=== PATIENT | female | born 1985 | race Hispanic/Latino ===

== ENCOUNTER 2020-06-23 04:02 | Inpatient (IN) | payer OTHER ==
[~2020-06-23] VITALS: Ht 162.6 cm; Wt 89.0 kg
--- NOTE | 2020-06-23 04:03 | NUR ---
PT WAS TAKEN TO THE TREATMENT AREA UPON ARRIVAL. PT IS TACHYPNEIC AND INCREASED WORK OF BREATHING NOTED.
[2020-06-23] MEDS ORDERED: OTC COUGH MED (04:37)
[2020-06-23 04:41] LABS: HEMATOCRIT 42.3 % (37.0-47.0); IMMATURE GRANULOCYTES 0.4 % (0.0-5.0); MEAN CELL VOLUME 85.8 fL CALC (80.0-100.0); MEAN CORPUSCULAR HGB 28.4 pG CALC (26.0-32.0); MEAN CORPUSCULAR HGB CONC 33.1 g/dL CAL (32.0-36.0); NEUT# 3.9 thou/uL (2.00-7.15); RED BLOOD COUNT 4.93 mill/uL (4.20-5.60); RED CELL DISTRI WIDTH 12.7 % (11.5-15.5)
[2020-06-23 05:01] LABS: ALBUMIN 4.3 g/dL (3.2-5.0); ALKALINE PHOSPHATASE 80 u/l (38-126); ANION GAP 14 (6-22 (CALC)); BILIRUBIN, TOTAL 0.9 mg/dL (0.0-1.4); BUN 15 mg/dL (7-17); BUN/CREATININE RATIO 18 (12-20 (CALC)); CARBON DIOXIDE 26 mmol/l (22-30); CHLORIDE 105 mmol/l (95-108); CREATININE 0.8 mg/dL (0.5-1.0); GFR > 60 ML/MIN (>=60 (CALC)); GFR FOR AFR.AMER. > 60 ML/MIN (>=60 (CALC)); POTASSIUM 3.3 mmol/l (3.5-5.1); SGOT/AST 45 u/l (14-36); SODIUM 141 mmol/l (137-146); TOTAL PROTEIN 8.6 g/dL (6.3-8.2)
[2020-06-23 05:30] LABS: MYOGLOBIN 22 ng/mL (0 - 62)
--- NOTE | 2020-06-23 06:16 | NUR ---
PT HAS RETURNED FROM CT SCAN AND HAS NON PRODUCTIVE COUGH
--- NOTE | 2020-06-23 07:30 | NUR ---
pt resting in bed, 3L of oxygen in place
--- NOTE | 2020-06-23 07:56 | NUR ---
gave report to ms, telemetry applied, will transfer pt to ms via stretcher with oxygen
[2020-06-23 08:27] LABS: URINE BILIRUBIN - DIPSTICK NEGATIVE (NEGATIVE); URINE BLOOD DIPSTICK TRACE-LYSED (NEGATIVE); URINE COLOR YELLOW; URINE GLUCOSE - DIPSTICK NEGATIVE (NEGATIVE); URINE KETONE NEGATIVE (NEGATIVE); URINE LEUK ESTERASE NEGATIVE (NEGATIVE); URINE PH 6.5 (4.5-8.0); URINE PROTEIN - DIPSTICK TRACE mg/dL (NEG-TRACE); URINE SPECIFIC GRAVITY <=1.005
[2020-06-23 08:28] LABS: URINE NITRITE - DIPSTICK NEGATIVE (Negative)
--- NOTE | 2020-06-23 08:40 | NUR ---
PT ARRIVED TO MED-SURG FLOOR VIA WC IN STABLE CONDITION ACCOMPANIED BY ED NURSES, TAY;PT AMBULATED TO BED WITH STEADY GAIT;VS AND ASSESSMENT WERE COMPLETED;ALLERGY AND FALL RISK ARM BANDS WERE PLACED ON PT;PT INVENTORY SHEET WAS COMPLETED;PT WAS ORIENTED TO TV,BED, AND CALL LIGHT SYSTEM;HEART SOUNDS ARE REGULAR IN RATE AND RHYTHM;LUNG SOUNDS ARE DIMINISHED IN ALL LOBES;RESPIRATIONS ARE EVEN AND UNLABORED ON O2@3L VIA NC;PT IS REPORTING EXERTIONAL SOB AND A NON-PRODUCTIVE COUGH WAS NOTED;TELE IS IN PLACE;#18G IV IN RAC IS SL, PATENT AND FREE OF COMPLICATIONS AT THIS TIME;SAFETY PRECAUTIONS IN PLACE;PT IS CURRENTLY ON AIR/CONTACT PRECAUTIONS IN NEG PRESSURE ROOM DUE TO COVID-19 DX;CALL LIGHT WITHIN REACH;BED IN LOWEST POSITION;PT ASKED TO CALL WITH ANY NEEDS OR CONCERNS;WILL CONTINUE TO MONITOR.
[2020-06-23 09:33] LABS: C-REACTIVE PROTEIN 6.6 mg/dL (0-0.9)
[2020-06-23 11:47] VITALS: BP 116/64
--- NOTE | 2020-06-23 12:00 | NUR ---
PT WAS FOUND SITTING UP IN BEDSIDE CHAIR EATING LUNCH;PT EXPRESSED NO NEEDS OR CONCERNS AT THIS TIME;TELE IS IN PLACE;O2@3L VIA NC IS IN PLACE;SAFETY PRECAUTIONS IN PLACE;CALL LIGHT WITHIN REACH;BED IN LOWEST POSITION;WILL CONTINUE TO MONITOR.
--- NOTE | 2020-06-23 16:00 | NUR ---
PT WAS FOUND RESTING IN BED;PT HAS NO REPORTS OF PAIN AT THIS TIME;TELE IS IN PLACE;O2@3L VIA NC IS IN PLACE;#18G IV IN RAC IS RUNNING NS@75ML/HR;IV SITE APPEARS FREE OF COMPLICATIONS AT THIS TIME;SAFETY PRECAUTIONS IN PLACE;CALL LIGHT WITHIN REACH;BED IN LOWEST POSITION;WILL CONTINUE TO MONITOR.
[2020-06-23 16:29] VITALS: BP 122/54
[2020-06-23 19:00] VITALS: BP 99/48
--- NOTE | 2020-06-23 20:30 | NUR ---
PATIENT RESTING IN BED WITH O2 VIA NASAL CANNULA IN PLACE AT 3LPM. LAST O2 SAT WAS 94%. PATIENT DOES BECOME SOB WITH EXHERSION. O2 EXTENSION WAS APPLIED SO PATIENT IS ABLE TO LEAVE THE O2 IN PLACE WHEN GOING INTO THE BR. OCC NON-PRODUCTIVE COUGH. USING ROBITUSSIN PRN. IVF NS PATENT AND INFUSING VIA RAC SITE AT 75CC/HR. SITE IS HEALTHY AT THIS TIME. TELE MONITOR IN PLACE-LAST READING WAS SR-84. LUNGS ARE CLEAR. DENIES ANY DIFF WITH URINATION. LAST BM WAS TODAY. PATIENT ON ISOLATION FOR COVID. CALL LIGHT IN REACH. WILL CONT TO MONITOR.
--- NOTE | 2020-06-23 23:40 | NUR ---
PATIENT CALLED AND C/O SOB. PATIENT UP TO THE BR TO VOID AND BECAME SOB-O2 VIA NASAL CANNULA IN PLACE AT 3LPM. PATIENT USED VENTOLIN INHALER WITH SOME RELIEF. HR ALSO INCREASED BUT SLOWLY RESOLVED BACK DOWN TO HIGH 90'S. TELE MONITOR IN PLACE. ROBITUSSIN GIVEN FOR NON-PRODUCTIVE COUGH. BACK TO BED WITH HOB ELEVATED. ENCOURAGED PRONING IF POSSIBLE AND ALSO INSTRUCTED ON USE OF IS Q1H WHILE AWAKE IN REPS OF 10. SAFETY PRECAUTIONS REINFORCED. CALL LIGHT IN REACH. WILL CONT TO MONITOR.
[2020-06-24] VITALS: BP 137/72
--- NOTE | 2020-06-24 03:57 | NUR ---
PATIENT RESTING IN BED WITH O2 VIA NASAL CANNULA IN PLACE AND O2 SAT OF 93%. PATIENT CONT TO HAVE NON-PRODUCTIVE COUGH AND MEDICATED WITH ROBITUSSIN ORDERED FOR COUGH. TELE MONITOR IN PLACE. IVF PATENT AND INFUSING VIA RAC SITE AT 75CC/HR. CALL LIGHT IN REACH. WILL CONT TO MONITOR.
[2020-06-24 04:00] VITALS: BP 122/72
[2020-06-24 05:36] LABS: HEMATOCRIT 38.2 % (37.0-47.0); HEMOGLOBIN 12.4 g/dl (12.0-16.0); IMMATURE GRANULOCYTES 0.4 % (0.0-5.0); MEAN CELL VOLUME 86.8 fL CALC (80.0-100.0); MEAN CORPUSCULAR HGB 28.2 pG CALC (26.0-32.0); MEAN CORPUSCULAR HGB CONC 32.5 g/dL CAL (32.0-36.0); NEUT# 3.77 thou/uL (2.00-7.15); RED BLOOD COUNT 4.4 mill/uL (4.20-5.60); RED CELL DISTRI WIDTH 12.7 % (11.5-15.5)
[2020-06-24 05:58] LABS: ALBUMIN 3.6 g/dL (3.2-5.0); ALKALINE PHOSPHATASE 69 u/l (38-126); ANION GAP 14 (6-22 (CALC)); BILIRUBIN, TOTAL 0.7 mg/dL (0.0-1.4); BUN 12 mg/dL (7-17); BUN/CREATININE RATIO 23 (12-20 (CALC)); CARBON DIOXIDE 22 mmol/l (22-30); CHLORIDE 110 mmol/l (95-108); CREATININE 0.5 mg/dL (0.5-1.0); GFR > 60 ML/MIN (>=60 (CALC)); GFR FOR AFR.AMER. > 60 ML/MIN (>=60 (CALC)); POTASSIUM 3.8 mmol/l (3.5-5.1); SGOT/AST 43 u/l (14-36); SODIUM 142 mmol/l (137-146); TOTAL PROTEIN 6.9 g/dL (6.3-8.2)
--- NOTE | 2020-06-24 07:00 | NUR ---
PT REPORT RECEIVED FROM NIGHT NURSESATURNINO.
[2020-06-24 08:30] VITALS: BP 119/59
[2020-06-24 10:37] VITALS: BP 114/60
--- NOTE | 2020-06-24 10:53 | NUR ---
AND POLY MACDONALD AT BEDSIDE DISCUSSING POC WITH PT
--- NOTE | 2020-06-24 12:00 | NUR ---
PT WAS FOUND RESTING IN BEDSIDE CHAIR;PT IS A&OX3;VS AND ASSESSMENT WERE COMPLETED;PT HAS NO REPORTS OF PAIN AT THIS TIME;HEART SOUNDS ARE REGULAR IN RATE AND RHYTHM;TELE IS IN PLACE;LUNG SOUNDS ARE DIMINISHED IN ALL LOBES;RESPIRATIONS ARE EVEN AND UNLABORED ON O2@3L VIA NC;PT IS REPORTING EXERTIONAL SOB AND A NON-PRODUCTIVE COUGH WAS NOTED;#18G IV IN RAC IS RUNNING NS @75ML/HR;IV SITE APPEARS FREE OF COMPLICATIONS AT THIS TIME;SAFETY PRECAUTIONS IN PLACE;CALL LIGHT WITHIN REACH;BED IN LOWEST POSITION;PT ASKED TO CALL WITH ANY NEEDS OR CONCERNS;WILL CONTINUE TO MONITOR.
--- NOTE | 2020-06-24 12:00 | NUR ---
PT WAS FOUND RESTING IN BEDSIDE CHAIR;TELE IS IN PLACE;O2@3L VIA NC IS IN PLACE;SAFETY PRECAUTIONS IN PLACE;CALL LIGHT WITHIN REACH;BED IN LOWEST POSITION;ENCOURAGED PT TO CALL WITH ANY NEEDS OR CONCERNS;WILL CONTINUE TO MONITOR
[2020-06-24 14:30] VITALS: BP 141/81
--- NOTE | 2020-06-24 16:00 | NUR ---
PT WAS FOUND RESTING IN BED;PT HAS NO REPORTS OF PAIN AT THIS TIME;O2@3L VIA NC IS IN PLACE;#18G IV IN RAC IS RUNNING NS@75 ML/HR;REMDESIVIR IS INFUSING AT THIS TIME;IV SITE APPEARS FREE OF COMPLICATIONS;SAFETY PRECAUTIONS IN PLACE;CALL LIGHT WITHIN REACH;BED IN LOWEST POSITION;WILL CONTINUE TO MONITOR.
[2020-06-24 19:00] VITALS: BP 136/76
--- NOTE | 2020-06-24 19:00 | NUR ---
REPORT RECEIVED FROM Ayaka SOTO RN, CARE OF PT ASSUMED AT THIS TIME.
--- NOTE | 2020-06-24 20:00 | NUR ---
PT SITTING UP IN CHAIR WATCHING TV. PHYSICAL ASSESMENT COMPLETE. RESPIRATIONS UNLABORED AT REST, REPORTS SOB WITH EXERTION. NON-PRODUCTIVE COUGH. LUNGS CLEAR AND DIMINSIHED. 02 A 3L/MIN VIA NC HUMIDIFIED. SPO2 94%. TELEMETRY #8612, NSR 80'S PER ORE DRESSING ENGINEER. PT REPORTS USING I.S. AND IMPROVING, HOWEVER HAS NOT BEEN ABLE TO REACH 500ML CAPACITY. R-AC #18G IV PATENT AND INFUSING NS@75ML/H. PT DENIES NEEDS WHEN ASKED, PT ABLE TO MAKE NEEDS KNOWN. CALL PENA WITHIN REACH, AGREES TO CALL PRN.
[2020-06-25] VITALS (7 sets, daily range): BP systolic 110–160; BP diastolic 70–95
--- NOTE | 2020-06-25 00:30 | NUR ---
PT APPEARS TO BE SLEEPING COMFORTABLY, LAYING IN BED WITH EYES CLOSED, RESPIRATIONS REGUALR AND UNLABORED, NO APPARENT DISTRESS. CALL PENA REMAINS WITHIN REACH.
--- NOTE | 2020-06-25 05:03 | NUR ---
Aleida DIAZ HORIZONTAL DRILL OPERATOR AT BEDSIDE TO COLLECT AM LABS.
[2020-06-25 05:40] LABS: HEMATOCRIT 35.8 % (37.0-47.0); HEMOGLOBIN 11.7 g/dl (12.0-16.0); IMMATURE GRANULOCYTES 0.7 % (0.0-5.0); MEAN CELL VOLUME 86.7 fL CALC (80.0-100.0); MEAN CORPUSCULAR HGB 28.3 pG CALC (26.0-32.0); MEAN CORPUSCULAR HGB CONC 32.7 g/dL CAL (32.0-36.0); NEUT# 2.54 thou/uL (2.00-7.15); RED BLOOD COUNT 4.13 mill/uL (4.20-5.60); RED CELL DISTRI WIDTH 12.5 % (11.5-15.5)
[2020-06-25 06:06] LABS: ALBUMIN 3.2 g/dL (3.2-5.0); ALKALINE PHOSPHATASE 58 u/l (38-126); ANION GAP 10 (6-22 (CALC)); BUN 14 mg/dL (7-17); BUN/CREATININE RATIO 29 (12-20 (CALC)); C-REACTIVE PROTEIN 4.9 mg/dL (0-0.9); CARBON DIOXIDE 25 mmol/l (22-30); CHLORIDE 108 mmol/l (95-108); CREATININE 0.5 mg/dL (0.5-1.0); GFR > 60 ML/MIN (>=60 (CALC)); GFR FOR AFR.AMER. > 60 ML/MIN (>=60 (CALC)); POTASSIUM 3.3 mmol/l (3.5-5.1); SGOT/AST 31 u/l (14-36); SODIUM 140 mmol/l (137-146); TOTAL PROTEIN 6.2 g/dL (6.3-8.2)
[2020-06-25 06:16] LABS: BILIRUBIN, TOTAL 0.4 mg/dL (0.0-1.4)
--- NOTE | 2020-06-25 07:00 | NUR ---
RECIEVED REPORT FROM JAKE FAY
--- NOTE | 2020-06-25 07:30 | NUR ---
PT RESTING IN SEMI FOWLERS POSITION. PT IS A/O X3. ASSESSMENT AND VITALS COMPLETED. BP 136/80, HR 84, O2 97% ON 2L NC. 2L NC AT BEDSIDE PRN, O2 93-94% ON ROOM AIR. REPSIRATIONS ARE EVEN AND UNLABORED. EXERTIONAL SOB NOTED. PT INSTRUCTED TO REAPPLY O2 WHEN NEEDED, PT VERBALIZED UNDERSTANDING. LUNG SOUNDS DIMINISHED. HEART RHYTHM NORMAL WITH TELE IN PLACE. BOWEL SOUNDS ARE ACTIVE.#18G IN RAC INFUSING WITH IVF PER CASSANDRA, SITE REMAINS HEALTHY AND PATENT. SKIN INTACT. PT DENIES OF ANY PAINS OR DISCOMFORTS AT THIS TIME.PT EDUCATED ON NEED FOR GETTING UP TO CHAIR AND PRONING. PT VERBALIZED UNDERSTANDING.I.S AT BEDSIDE, PT DEMISTRATES, 500 REACHED.PT EDUCATED ON USAGE 10X PER HOUR. ALL SAFETY PRECAUTIONS ARE IN PLACE WITH CALL LIGHT IN REACH. AIR/CONTACT PRECAUTIONS ARE IN PLACE. WILL CONTINUE TO MONITOR.
--- NOTE | 2020-06-25 09:01 | NUR ---
PT SITTING UP ON SIDE OF BED. REPSIRATIONS REMAINS EVEN AND UNLABORED ON ROOM AIR. O2 92%. PT INSTRUCTED TO REAPPLY O2 IF NEEDED. PT VERBLAIZED UNDERSTANDING. 2L NC AT BEDSIDE PRN. NONPRODUCTIVE COUGH NOTED. ROBITUSSIN ADMINISTERED. PT TOLERATED WELL.
--- NOTE | 2020-06-25 09:18 | NUR ---
DIALLO,ANRP AT BEDSIDE
--- NOTE | 2020-06-25 11:38 | NUR ---
PTIN HIGH FOWLERS POSITION. RESPIRATIONS ARE EVEN AND UNLABORED ON ROOM AIR. #18G RAC HEALTHY AND PATENT, IVF DC PER ORDER. TELE MONITORING IN PLACE. PT COMPLAINS OF COUGH, INFORMED THAT ROBITUSSIN WAS YET DUE. PT DENIES OF ANY OTHER NEEDS AT THIS TIME. ALL SAFTEY AND ISOLATION PRECAUTIONS ARE IN PLACE. WILL CONTINUE TO MONITOR.
--- NOTE | 2020-06-25 12:21 | NUR ---
DR INIGUEZ AT BEDSIDE
--- NOTE | 2020-06-25 14:09 | NUR ---
PT RESTING IN SEMI FOWLERS POSITION.RESPIRATIONS ARE EVEN AND UNLABORED ON ROOM AIR. O2 93%. ROBITUSSIN ADMINISTERED AT THIS TIME PER PT REQUEST. PT DENES OF ANY OTHER NEEDS AT THIS TIME. IV ANTIBIOTIS INFUSING WITH EASE, WILL CONTINUE TO MONITOR.
--- NOTE | 2020-06-25 16:04 | NUR ---
PT SITTING UP IN CHAIR. RESPIRATIONS ARE EVEN AND UNLABORED WITH NO DISTRESS NOTED ON ROOM AIR. #18G IN RAC INFUSING WITH IVF ANTIBIOTICS, SITE REMAINS HEALTHY AND PATENT.TELE MONITORING IN PLACE. PT DENIES OF ANY NEEDS OR DISCOMFORTS AT THIS TIME. ALL SAFETY PRECAUTIONS ARE IN PLACE WITH CALL LIGHT IN REACH. WILL CONTINUE TO MONITOR.
--- NOTE | 2020-06-25 19:00 | NUR ---
REPORT RECEIVED MARLINE MEIER LPN, CARE OF PT ASSUMED AT THIS TIME.
--- NOTE | 2020-06-25 20:45 | NUR ---
PT SITTING UP IN CHAIR, WATCHING TV. PHYSICAL ASSESMENT COMPLETE. RESPIRATIONS REGULAR AND UNLABORED, PERSISTENT DRY NON-PRODUCTIVE COUGH APPRECIATED. LUNGS CLEAR AND DIMINISHED. PT REPORTS DIFFICULTY WITH DEEP INSPIRATION, COUGHING NOTED TO GET WORSE WITH DEEP BREATH. PULMONARY HYGIENE REVIEWED AND ENCOURAGED, PRONING WHILE IN BED ENCOURAGED. INCENTIVE SPIROMETER ON BEDSIDE TABLE, PT REPORTS SHE IS USING IT. SPO2 93% ON ROOM AIR. SCHEDULED MEDICATION AND PRN ROBITUSSIN ADMINISTERED, SEE E-MAR. PLAN OF CARE REVIEWED, PT VERBALIZES UNDERSTANDING. PT'S IV WRAPPED WITH SHOWER SHIELD PER HER REQUEST AND TELEMETRY REMOVED. ALUMINUM SIDING INSTALLER MADE AWARE PT WOULD BE IN SHOWER AND OFF MONITOR. PT AGREES TO PULL RED CORD IN SHOWER IF SHE NEEDS ASSISTANCE.
--- NOTE | 2020-06-26 00:30 | NUR ---
PT APPEARS TO BE SLEEPING COMFORTABLY, LAYING IN BED WITH EYES CLOSED, RESPIRATIONS REGUALR AND UNLABORED, NO APPARENT DISTRESS. CALL PENA REMAINS WITHIN REACH.
[2020-06-26 04:00] VITALS: BP 140/86
--- NOTE | 2020-06-26 05:05 | NUR ---
Aleida DIAZ MINE UTILITY OPERATOR AT BEDSIDE TO COLLECT AM LABS.
[2020-06-26 05:50] LABS: HEMATOCRIT 37.7 % (37.0-47.0); HEMOGLOBIN 12.5 g/dl (12.0-16.0); IMMATURE GRANULOCYTES 4.2 % (0.0-5.0); MEAN CELL VOLUME 84.9 fL CALC (80.0-100.0); MEAN CORPUSCULAR HGB 28.2 pG CALC (26.0-32.0); MEAN CORPUSCULAR HGB CONC 33.2 g/dL CAL (32.0-36.0); NEUT# 2.62 thou/uL (2.00-7.15); RED BLOOD COUNT 4.44 mill/uL (4.20-5.60); RED CELL DISTRI WIDTH 12.3 % (11.5-15.5)
[2020-06-26 05:59] LABS: ALBUMIN 3.4 g/dL (3.2-5.0); ALKALINE PHOSPHATASE 60 u/l (38-126); ANION GAP 12 (6-22 (CALC)); BILIRUBIN, TOTAL 0.4 mg/dL (0.0-1.4); BUN 14 mg/dL (7-17); BUN/CREATININE RATIO 28 (12-20 (CALC)); CARBON DIOXIDE 24 mmol/l (22-30); CHLORIDE 107 mmol/l (95-108); CREATININE 0.5 mg/dL (0.5-1.0); GFR > 60 ML/MIN (>=60 (CALC)); GFR FOR AFR.AMER. > 60 ML/MIN (>=60 (CALC)); POTASSIUM 3.6 mmol/l (3.5-5.1); SGOT/AST 26 u/l (14-36); SODIUM 140 mmol/l (137-146); TOTAL PROTEIN 6.6 g/dL (6.3-8.2)
--- NOTE | 2020-06-26 07:00 | NUR ---
RECIEVED REPORT FROM JAKE FAY
[2020-06-26 07:44] VITALS: BP 135/63
--- NOTE | 2020-06-26 07:50 | NUR ---
PT RESTING IN SEMI FOWLERS POSITION. PT IS A/O X3. ASSESSMENT AND VITALS COMPLETED. BP 135/63, HR 92, O2 95% ON ROOM AIR. REPSPIRATIONS ARE EVEN AND UNLABORED WITH NO SIGNS OF DISTRESS NOTED. LUNG SOUNDS ARE DIMINISHED. NONPRODUCTIVE COUGH NOTED. HEART RHYTHM NORMAL WITH TELE IN PLACE. BOWEL SOUNDS AE ACTIVE. PT REPORTS LOOSE BM. #18G IN RAC FLUSHED, SITE REMAINS HEALTHY AND PATENT. SKIN INTACT. PT COMPLAINS OF 3/10 BACK PAIN, PT TO BE MEDICATED PER EMAR. I.S AT BEDSIDE. PT INSTRUCTED ON USAGE OF 10 TIMES PER HOUR. PT VERBALIZED UNDERSTANDING. PT DENIES OF ANY OTHER NEEDS AT THIS TIME. ALL SAFETY PRECAUTIONS ARE IN PLACE WITH CALL LIGHT IN REACH. ALL SAFETY PRCAUTIONS ARE IN PLACE WITH CALL LIGHT IN REACH. AIR/CONTACT PRECAUTIONS ARE IN PLACE. WILL CONTINUE TO MONITOR.
[2020-06-26 10:30] VITALS: BP 115/64
--- NOTE | 2020-06-26 12:27 | NUR ---
PT SITTING UP IN RECYLINER ON PHONE. RESPIRATIONS ARE EVEN AND UNLABORED WITH NO DISTRESS NOTED. #18G IN RAC SL. TELE MONITORING IN PLACE. PT DENIES OF ANY PAINS OR DISCOMFORTS AT THIS TIME.ALL SAFETY PRECAUTIONS ARE IN PLACE WITH CALL LIGHT IN REACH. WILL CONTINUE.
[2020-06-26 15:40] VITALS: BP 144/77
--- NOTE | 2020-06-26 16:18 | NUR ---
PT RESTING IN SEMI FOWLERS POSITION. RESPIRATIONS ARE EVEN AND UNLABORED ON ROOM AIR. #18G IN RAC, PT REFUSES CHANGE DUE TO DC TOMORROW. SITE REMAINS HEALTHY AND PATENT WITH GOOD BLOOD RETURN. TELE MONITORING IN PLACE. PT DENIES OF ANYU PAINS OR NEEDS AT THIS TIME. ALL SAFETY PRECAUTIONS ARE IN PLACE WITH CALL LIGHT IN REACH. WILL CONTINUE TO MONITOR.
[2020-06-26 19:30] VITALS: BP 108/71
--- NOTE | 2020-06-26 21:00 | NUR ---
PATIENT SITTING UP IN BED WATCHING TV-NO O2 AT THIS TIME. LAST O2 SAT WAS 92F% ON ROOM AI. ALERT AND ORIENTEDX3. PATIENT CONT TO HAVE NON-PRODUCTIVE COUGH. MEDICATED WITH ROBITUSSIN ORDERED FOR COUGH. TELE MONITOR IN PLACE-LAST READING WAS SR-88. SALINE LOCK TO RAC INTACT AND REMAINS HEALTHY AT THIS TIME. PATIENT DENIES ANY DIFFICULTY WITH URINATION. LUNGS ARE DIMINISHED BUT CLEAR. ENCOUARGED USE OF IS Q1H WHILE AWAKE IN REPS OF 10. VERBALIZES U NDERSTANDING. ENCOURAGED PRONING BUT PATIENT STATES THAT SHE IS NOT ABLE TO TOLERATE THAT. REMAINS ON ISOLATION FOR COVID. SAFETY PRECAUTIONS REINFORCED. CALL LIGHT IN REACH. WILL CONT TO MONITOR.
[2020-06-27] VITALS: BP 103/56
--- NOTE | 2020-06-27 00:15 | NUR ---
PATIENT RESTING IN BED WITH EYES CLOSED. RESPS ARE EVEN AND UNLABORED-O2 SAT ON RA IS 93%. TELE MONITOR IN PLACE. CALL LIGHT IN REACH. WILL CONT TO MONITOR.
[2020-06-27 04:00] VITALS: BP 111/65
--- NOTE | 2020-06-27 04:22 | NUR ---
PATIENT RESTING IN BED WITH EYES CLOSED. RESPS ARE EVEN AND UNLABORED-O2 SAT AT THIS TIME IS 93% ON ROOM AIR. TELE MONITOR IN PLACE. CALL LIGHT IN REACH. WILL CONT TO MONITOR.
[2020-06-27 05:15] LABS: HEMATOCRIT 38.8 % (37.0-47.0); IMMATURE GRANULOCYTES 5.4 % (0.0-5.0); MEAN CELL VOLUME 84.2 fL CALC (80.0-100.0); MEAN CORPUSCULAR HGB 28.2 pG CALC (26.0-32.0); MEAN CORPUSCULAR HGB CONC 33.5 g/dL CAL (32.0-36.0); NEUT# 3.81 thou/uL (2.00-7.15); RED BLOOD COUNT 4.61 mill/uL (4.20-5.60); RED CELL DISTRI WIDTH 12.3 % (11.5-15.5)
[2020-06-27 05:34] LABS: ALBUMIN 3.5 g/dL (3.2-5.0); ALKALINE PHOSPHATASE 60 u/l (38-126); ANION GAP 11 (6-22 (CALC)); BILIRUBIN, TOTAL 0.4 mg/dL (0.0-1.4); BUN 17 mg/dL (7-17); BUN/CREATININE RATIO 32 (12-20 (CALC)); CARBON DIOXIDE 24 mmol/l (22-30); CHLORIDE 107 mmol/l (95-108); CREATININE 0.5 mg/dL (0.5-1.0); GFR > 60 ML/MIN (>=60 (CALC)); GFR FOR AFR.AMER. > 60 ML/MIN (>=60 (CALC)); POTASSIUM 3.5 mmol/l (3.5-5.1); SGOT/AST 28 u/l (14-36); SODIUM 138 mmol/l (137-146); TOTAL PROTEIN 6.6 g/dL (6.3-8.2)
--- NOTE | 2020-06-27 06:55 | NUR ---
REPORT RECEIVED FROM JAKE MATAMOROS
[2020-06-27 07:55] VITALS: BP 104/68
--- NOTE | 2020-06-27 07:55 | NUR ---
PT RESTING IN SEMI FOWLERS POSITION,A&O X3;VS OBTAINED AND ASSESSMENT COMPLETED;PT DENIES ANY CURRENT PAIN OR DISCOMFORTS,PAIN SCALE AND REPORTING EDUCATED;RESPIRATIONS EVEN AND UNLABORED ON RA,CLEAR LUNG SOUNDS WITH NON-PRODUCTIVE COUGH NOTED;ABDOMEN SOFT ON PALPATION AND ACTIVE IN ALL 4 QUADRANTS;STRONG PEDAL PULSES;SKIN INTACT;TELE MONITORING IN PLACE;#18G TO RAC FLUSHED AND PATENT,SITE APPEARS HEALTHY;PT REMAINS IN AIR/CONTACT PRECAUTIONS DUE TO COVID19 DX;PT DENIES ANY ADDITIONAL NEEDS AT THIS TIME AND IS ENCOURAGED TO CALL FOR ASSISTANCE IF NEEDED;FALL PRECAUTIONS REMAIN IN PLACE WITH BED IN THE LOWEST POSITION AND CALL LIGHT IN REACH;WILL CONTINUE TO MONITOR
--- NOTE | 2020-06-27 10:49 | NUR ---
AT BEDSIDE DISCUSSING POC.
[2020-06-27] MEDS ORDERED: DEXAMETHASON6 MG PO (11:09)
[2020-06-27] MEDS ORDERED: ZITHROMAX500 MG PO (11:09)
[2020-06-27] MEDS ORDERED: ASPIRIN REGULA325 M1 PO (11:10)
[2020-06-27] MEDS ORDERED: ROBITUSSIN AC10 ML PO (11:11)
[2020-06-27 11:18] VITALS: BP 107/60
--- NOTE | 2020-06-27 11:20 | NUR ---
PT RESTING IN RECLINER;RESPIRATIONS EVEN AND UNLABORED ON RA;OXYGEN QUALIFICATION TEST COMPLETED AT THIS TIME PER ORDER, PT O2 SATS AT REST ARE 94%, WITH AMBULATION O2 SATS DROP TO 90% AND THEN QUICKLY RISE TO 92% WITH REST;PT DENIES ANY CURRENT PAIN OR DISCOMFORTS;TELE MONITORING IN PLACE;IV SITE REMAINS PATENT;PT EDUCATED ON PLANS TO D/C HOME AFTER DOSE OF REMDESIVIR @ 1400;PT DENIES ANY ADDITIONAL NEEDS AND IS ENCOURAGED TO CALL FOR ASSISTANCE IF NEEDED;FALL PRECAUTIONS REMAIN IN PLACE WITH CALL LIGHT IN REACH;WILL CONTINUE TO MONTIOR
--- NOTE | 2020-06-27 13:53 | NUR ---
PT MEDICATED WITH PRN ROBITUSSIN 200MG PO FOR COUGH PER REQUEST.
--- NOTE | 2020-06-27 14:00 | NUR ---
ALL DISCHARGE INSTRUCTIONS PROVIDED AT THIS TIME;PT ENCOURAGED TO F/U WITH PCP, TAKE ZITHRO AND DECADRON FOR 5 ADDITIONAL DAYS,TAKE ASPIRIN FOR 30 MORE DAYS, AND SELF ISOLATE FOR AN ADDITIONAL 6 DAYS;PT VERBALIZES UNDERSTANDING AND DENIES ANY ADDITIONAL QUESTIONS OR NEEDS;TELE MONITORING D/C AT THIS TIME;AWAITING ABX TO COMPLETE BEFORE D/C HOME;WHEELCHAIR TO BE PROVIDED FOR D/C HOME;FAMILY TO TRANSPORT PT HOME;WILL CONTINUE TO MONITOR
--- NOTE | 2020-06-27 15:00 | NUR ---
#18G TO RAC REMOVED WITH CATHETER INTACT DUE TO D/C HOME.
--- NOTE | 2020-06-27 15:15 | NUR ---
Discharge instructions given. Patient verbalizes understanding of same. Discharged in stable condition via Wheelchair to Home with family. All belongings sent with pt. PT TRANSPORTED TO [facility] IN STABLE CONDITION VIA WHEELCHAIR ACCOMPANIED BY ARMANI NATARAJAN FOR D/C HOME;ALL BELONGINGS LEFT WITH PT.FAMILY TO TRANSPORT PT HOME.
--- NOTE | 2020-06-29 11:52 | NUR ---
Pneumonia post discharge follow up call completed today, 06/29/20/ Pt. states she is doing really well. No fever, chills, or SOB since discharge. Discharge medications were obtained and are being taken without issue. No follow up appt. has been made yet, but pt indicates she will make one. No questions or needs voiced at this time.
--- NOTE | 2020-07-01 10:31 | NUR ---
Pneumonia post discharge follow up call completed today, 07/01/20. Pt. states she is doing well. No fever, chills,or SOB since discharge. Discharge medications were obtained and are being taken without issue. No follow up appt with PCP has been scheduled to date, but pt. indicates she will do so soon. No questions or concerns voiced by patient.
== END 2020-06-27 15:15 | disposition home or self-care (01) | DRG 177 ==
LOC: ED 04:02 → ED-I 06:41 → ED 06:54 → MS2 06:55
PROVIDERS: Emergency Medicine; Nurse Practitioner; ADMIT Internal Medicine; ATTEND Internal Medicine
PROC: XW033E5 Introduction of Remdesivir Anti-infective into Peripheral Vein, Percutaneous Approach, New Technology Group 5 (ICD-10-PCS; principal; 2020-06-23)
DX: U07.1 COVID-19 (principal); J12.82 Pneumonia due to coronavirus disease 2019; J96.01 Acute respiratory failure with hypoxia; E87.6 Hypokalemia; I95.9 Hypotension, unspecified
CPT/HCPCS: J1650; Q9967